=== PATIENT | female | born 1970 | race Caucasian/White ===

== ENCOUNTER → 2021-08-20 | Outpatient (CLI) | payer MEDICARE, OTHER | LOC: ECHO 10:49 → NM 13:00 | DX: I20.9 Angina pectoris, unspecified (principal); R06.02 Shortness of breath; I34.0 Nonrheumatic mitral (valve) insufficiency; I51.7 Cardiomegaly; I51.89 Other ill-defined heart diseases | CPT/HCPCS: ECHO; 93306 ==

== ENCOUNTER → 2021-08-26 | Outpatient (CLI) | payer MEDICARE, OTHER | LOC: HEART 5 13:00 | DX: I20.9 Angina pectoris, unspecified (principal); R06.02 Shortness of breath ==